=== PATIENT | female | born 1980 | race Caucasian/White ===

== ENCOUNTER 2016-12-15 06:30 | Inpatient (IN) | payer MEDICAID ==
[~2016-12-15] VITALS: Ht 162.6 cm; Wt 108.9 kg
--- NOTE | ~2016-12-15 | FD ---
ADMIT: 12/15/2016 RM/LOC: 226 [facility] MR#: [id number] [address] [facility] [address] LUBNA ALISA Felicity [address] [place] [address] Final Diagnosis SEX: F AGE: 36 : 1980 ADMISSION DATE: 12/15/2016 DISCHARGE DATE: 12/16/2016 FINAL DIAGNOSIS: 1. A 36-year-old 6 para 6-0-0-6 status post spontaneous vaginal delivery at 40 weeks 3 days. 2. Advanced maternal age. PROCEDURE: Spontaneous vaginal delivery with delivery of viable male , 8 pounds 6 ounces, Apgars 8 and 9. Evelin Greenfield MD Resident / Jesi Zaidi MD / ana JOB #: [id number] CC: Jesi Zaidi MD, Attending Physician Jesi Zaidi MD, Family Physician
[~2016-12-15 06:30] MED LIST: AUGMENTIN XR 11 EACH PO; PRENATAL VIT1 TAB PO; TYLENOL DPS325 MG PO; [UNRECOGNIZED DRUG - REMARK] TP
--- NOTE | 2017-01-11 12:59 | HP ---
ADMIT: 12/15/2016 RM/LOC: 226 [facility] MR#: [id number] [address] [facility] [address] [place] [id number] ALISA CALVO [address] [place] [address] History and Physical SEX: F AGE: 36 : 1980 Corrected: 12/16/2016 0537 nj 12/16/2016 1048 ana DATE OF SERVICE: CHIEF COMPLAINT: Induction of labor. HISTORY OF PRESENT ILLNESS: This is a 36-year-old G6, P5-0-0-5 with an intrauterine at 40 weeks 3 days via second trimester ultrasound, who presents for induction of labor. is complicated by AMA and second trimester dating. She endorses regular contractions this morning. She reports normal movement. No leaking of fluid or vaginal bleeding. PAST MEDICAL HISTORY: Obesity and chronic right knee pain. SOCIAL HISTORY: She denies alcohol use, recreational drug use, or tobacco use. She lives with her and 15-year-old daughter as well as a 15-month- old daughter. Her other children are out of the home. FAMILY HISTORY: She reports a family history of breast cancer in her paternal aunt. MEDICATIONS: vitamin. ALLERGIES: NO KNOWN MEDICAL ALLERGIES. REVIEW OF SYSTEMS: Negative for headache, changes of vision, chest pain, or shortness of breath. No nausea, vomiting, diarrhea, or constipation. PHYSICAL EXAMINATION: VITAL SIGNS: 118/73, pulse is 75, respiratory rate 16, temperature 97.5 degrees Fahrenheit. She is saturating 96% on room air. GENERAL: She is alert and oriented x3. INTEGUMENTARY: No rashes or lesions noted. HEART: Regular rate and rhythm. LUNGS: Clear to auscultation bilaterally. ABDOMEN: Gravid. Nontender. EXTREMITIES: Trace edema in bilateral lower extremities. Sterile vaginal exam per nursing staff 2, 30, -2. heart rate 120 baseline, moderate variability, positive accels, no decels. Contractions occurring irregularly q 7-8 minutes. LABORATORIES: Blood type is A positive with direct antibody testing negative. GBS positive. Hepatitis B negative. Rubella immune. HIV negative. One-hour glucose tolerance test 122. Urine culture negative. Hemoglobin 11.6. RPR negative. Gonorrhea and chlamydia negative. ASSESSMENT AND PLAN: This is a 36-year-old G6, P5-0-0-5 with an intrauterine of 40 weeks 3 days via first trimester ultrasound, who presents for induction of labor. 1. Labor. Plan to start Cytotec 25 mcg placed vaginally given her Hughes score of 5. Consents were obtained for vaginal delivery, assistive ADMIT: 12/15/2016 RM/LOC: 226 [facility] MR#: [id number] [address] [address] ALISA CALVO [address] [place] [address] History and Physical SEX: F AGE: 36 : 1980 vaginal delivery, and section. The patient expresses understanding of the risks of procedure. Immunizations are up-to-date and documented. Blood type is AB positive. She does consent to transfusion as needed. CBC ordered and pending. 2. heart tones reassuring, category 1. 3. Maternal well being. The pain is currently well controlled. We will continue to monitor throughout the labor process. The patient was discussed and seen with attending physician Dr. Jesi Zaidi. 4. GBS status positive. We will plan to treat with antibiotic prophylaxis during labor. Evelin Greenfield MD Resident / Jesi Zaidi MD / tong JOB #: [id number] CC: Jesi Zaidi, Attending Physician Jesi Zaidi, Family Physician Corrected: 12/16/2016 0537 nj 12/16/2016 1048 ana
--- NOTE | 2017-01-11 13:14 | OR ---
ADMIT: 12/15/2016 RM/LOC: 226 [facility] MR#: [id number] [facility]#: [id number] [address] [address] ARNEL CALVOYSIA Felicity [address] [place] [address] Operative/Delivery Room Report SEX: F AGE: 36 : 1980 Corrected: 12/18/2016 0905 djs SURGERY DATE: 12/15/2016 SURGEON: Jesi Zaidi MD PROCEDURE: Spontaneous vaginal delivery. PREOPERATIVE DIAGNOSES: 1. A 36-year-old, G6, P5-0-0-5 with an intrauterine at 40 weeks 3 days. 2. Advanced maternal age. POSTOPERATIVE DIAGNOSES: 1. A 36-year-old, G6, P6-0-0-6 status post spontaneous vaginal delivery at 40 weeks 3 days. 2. First-degree perineal lacerations status post repair. 3. Advanced maternal age. DELIVERY INFORMATION: Delivery time 1947 hours. This was a male , weighing 8 pounds 6 ounces with Apgars of 8 and 9 in MATT presentation. FINDINGS: A viable male infant, 8 pounds 6 ounces. Apgars 8 and 9 in MATT presentation. Normal placenta with 3-vessel cord. ESTIMATED BLOOD LOSS: 300 mL. PROCEDURE IN DETAIL: In the setting of a category II heart rate tracing, the patient was found to be complete and expulsive efforts were begun. The infant's head was brought to the perineum and delivered over an intact perineum. The head was restituted to the right, and the anterior and posterior shoulder were delivered without difficulties. The body followed. The was vigorous and crying. He was placed on the mother's abdomen. Tactile stimulation and bulb suction of the mouth were performed. After 1 minute of delayed cord clamping, the cord was clamped and cut. Cord blood was collected. Cord gas was not collected. Pitocin was administered per protocol. The ADMIT: 12/15/2016 RM/LOC: 226 [facility] MR#: [id number] [address] [address] ALISA CLAVO [address] [place] [address] Operative/Delivery Room Report SEX: F AGE: 36 : 1980 placenta was delivered spontaneously with a 3-vessel cord. Placenta was found to be intact. The cervix, vagina, and perineum were inspected for lacerations. A first-degree perineal laceration was found and was repaired with 3-0 Vicryl in normal fashion. All tissues were found to be hemostatic and all counts were correct. 's weight was found to be 8 pounds 6 ounces. Apgars 8 and 9. Mother and infant were stable in mother's room. The patient tolerated the procedure well with no known complications at this time. Dr. Jesi Zaidi was present for the entire procedure. Evelin Greenfield MD Resident / Jesi Zaidi MD / tong JOB #: [id number] CC: Jesi Zaidi, Attending Physician Jesi Zaidi, Family Physician Corrected: 12/18/2016 0905 [email or web address]
== END 2016-12-16 21:55 | disposition home or self-care (01) | DRG 775 ==
LOC: BC 06:30 → 2LDRP 06:30
PROVIDERS: ADMIT Obstetrics & Gynecology
PROC: 3E0P7GC Introduction of Other Therapeutic Substance into Female Reproductive, Via Natural or Artificial Opening (ICD-10-PCS; principal; 2016-12-15)
PROC: 0HQ9XZZ Repair Perineum Skin, External Approach (ICD-10-PCS; principal; 2016-12-15)
PROC: 10907ZC Drainage of Amniotic Fluid, Therapeutic from Products of Conception, Via Natural or Artificial Opening (ICD-10-PCS; principal; 2016-12-15)
PROC: 3E033VJ Introduction of Other Hormone into Peripheral Vein, Percutaneous Approach (ICD-10-PCS; principal; 2016-12-15)
PROC: 10E0XZZ Delivery of Products of Conception, External Approach (ICD-10-PCS; principal; 2016-12-15)
DX: O48.0 Post-term pregnancy (principal); O99.824 Streptococcus B carrier state complicating childbirth; O70.0 First degree perineal laceration during delivery; Z3A.40 40 weeks gestation of pregnancy; Z37.0 Single live birth